=== PATIENT | female | born 1965 | race Caucasian/White ===

== ENCOUNTER 2020-02-09 06:59 | Emergency (ER) | payer OTHER, SELFPAY ==
[2020-02-09 07:00] VITALS: BP 158/91; PULSE 98; RESP 18; TEMP 36.5; O2SAT 96; BMI 39.9
[2020-02-09] MEDS: lidocaine 1% INJ 20 mL INTRADERMA (07:15)
--- NOTE | 2020-02-09 07:34 | W.ED.SKABFB ---
HPI - Skin/Abscess/Foreign Bdy General: Chief complaint: Skin/Abscess/Foreign Body Stated complaint: SORE ON BREAST Time Seen by Provider: 02/09/20 07:02 Source: patient Mode of arrival: ambulatory Limitations: no limitations History of Present Illness: HPI narrative: 55-year-old female patient presents to the emergency department with an abscess between her breast. Patient states that this is been here for a few days and is progressively worsened. Patient states she was prescribed clindamycin last night but has not yet started it. Patient denies any fever. Patient denies any systemic symptoms of illness. Patient states it is painful. Associated symptoms: Deny chills or fever(s) Review of Systems General: Reports: 10 or more systems reviewed and unremarkable except in HPI and below Const: Denies: fever(s), chills or body aches Card: Denies: chest pain Resp: Denies: dyspnea GI: Denies: abdominal pain Skin/Breast: Reports: skin tenderness and other (Abscess between the breasts) Physical Exam Const: COMMON NORMALS: no acute distress, average body habitus, patient oriented x3, no limitations, healthy appearing, alert and well nourished Neuro: COMMON NORMALS: patient oriented x3 SENSORIUM/ORIENTATION: Yes alert Psych: COMMON NORMALS: mental status grossly normal, Normal thought process present, cooperative, normal affect and activity/motor behavior normal THOUGHT PROCESS: Normal thought process present THOUGHT CONTENT: Yes Normal thought content present Skin: NARRATIVE SKIN EXAM: 2 cm area that is indurated erythematous there is no fluctuance or pointing noted. Procedures Abscess I/D Site: chest Local Anesthetic: lidocaine 1% Amount of anesthesia used (mL): 5 Irrigation: Yes Packing used?: plain Complications: other (None) Course ED course: Will perform incision and drainage and have patient continue her clindamycin as prescribed Vital Signs: Vital signs: Vital Signs Temperature 97.7 F 02/09/20 07:00 Pulse Rate 98 02/09/20 07:00 Respiratory Rate 18 02/09/20 07:00 Blood Pressure 158/91 02/09/20 07:00 Pulse Oximetry 96 02/09/20 07:00 MDM - Skin/Abscess/Foreign Bdy MDM Narrative: Medical decision making narrative: Patient is well-appearing nontoxic and in no acute distress. Patient denies any fever. Patient denies any systemic symptoms of illness. I did attempt incision and drainage did have minimal purulent drainage noted. I was able to pack the abscess. I will have patient return in 24 to 48 hours for wound recheck and packing removal. Patient was prescribed clindamycin but yet not yet started I will have patient start clindamycin as prescribed. Patient advised to use warm compresses. Differential Diagnosis: Skin/Abscess Differential Diagnosis: Likely abscess of skin or subcutaneous tissue, cellulitis and impetigo Discharge Plan Discharge Patient Disposition: Home Clinical Impression: Abscess of skin or subcutaneous tissue Qualifiers: Site of cutaneous abscess: other site Qualified Code(s): L02.818 - Cutaneous abscess of other sites Condition: Stable Discharge Orders: Discharge Order (Routine); Ordered 02/09/20 Ordered By: Alejandra Merida Discharge Diet: Advance as tolerated Discharge Activity: Resume usual activity Patient Instructions: Abscess Incision and Drainage (ED), Abscess (ED) Activity Restrictions/Additional Instructions: Please return to the emergency department for wound recheck and packing removal in 24 to 48 hours. Please use warm compresses to the area. Please continue to take antibiotics as prescribed. 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
[2020-02-09 07:47] VITALS: RESP 18
== END 2020-02-09 07:47 | disposition home or self-care (01) ==
LOC: ER 09:40
PROVIDERS: Emergency Provider Registered Nurse
DX: L02.818 Cutaneous abscess of other sites (principal)
CPT/HCPCS: 10060; 12345; 99281; 99282